=== PATIENT | male | born 1955 | race Caucasian/White ===

== ENCOUNTER 2024-04-10 12:06 | Outpatient (CLI) | payer MEDICARE, SELFPAY ==
--- NOTE | ~2024-04-10 | US_ITS ---
EXAMINATION: US venous doppler [facility] DATE: 04/10/2024 12:44 INDICATION: Left lower limb swelling. Other specified soft tissue disorders. TECHNIQUE: Grayscale ultrasound images without and with compression and Doppler ultrasound images of the left lower extremity veins were obtained. COMPARISON: None. FINDINGS: The visualized portions of left common femoral vein, profunda (deep) femoral vein, and greater saphen ous vein outflow are patent. There is thrombus in left femoral, popliteal, posterior tibial, peroneal , and gastrocnemius veins. IMPRESSION: 1. Deep vein thrombosis involving left femoral, popliteal, posterior tibial, peroneal, and gastrocne mius veins. Reviewed, dictated and finalized at location A. IMPRESSION: 1. Deep vein thrombosis involving left femoral, popliteal, posterior tibial, p eroneal, and gastrocnemius veins.
== END 2024-04-10 12:07 | disposition home or self-care (01) ==
LOC: ANHIMG 12:06
PROVIDERS: PCP Family Medicine; Visit Provider Family Medicine
DX: I82.412 Acute embolism and thrombosis of left femoral vein (principal); I82.432 Acute embolism and thrombosis of left popliteal vein; I82.442 Acute embolism and thrombosis of left tibial vein; I82.452 Acute embolism and thrombosis of left peroneal vein; I82.462 Acute embolism and thrombosis of left calf muscular vein; M79.89 Other specified soft tissue disorders
CPT/HCPCS: 93971